=== PATIENT | female | born 1965 | race Caucasian/White ===

== ENCOUNTER 2017-06-17 17:16 | Inpatient (IN) ==
[2017-06-17] MEDS ORDERED: SODIUM CHLORIDE 0.9% 500 ML IV STA (18:14)
[2017-06-17] MEDS ORDERED: NALOXONE 0.4 MG/ML VIAL IV STA (18:14)
[2017-06-17] MEDS ORDERED: ONDANSETRON 4 MG/2 ML VIAL IV STA (18:14)
[2017-06-17 18:25] LABS: Basophils % 0.1 % (0.0-0.8); Eosinophils % 0.1 % (0.00-10.9); Hematocrit 36.9 VOL% (35.7-47.0); Hemoglobin 12.6 GM/DL (12.0-16.0); Immature Granulocytes % 0.6 %; Immature Granulocytes Absolute 0.05 #; Lymphocytes # 1.1 10*3/uL (1.4-4.0); Lymphocytes % 11.8 % (21.3-54.2); Mean Corpuscular HGB Conc 34.1 GM/DL (32-36); Mean Corpuscular Hemoglobin 32 PG (27-34); Mean Corpuscular Volume 94.6 FL (87-102); Mean Platelet Volume 9.8 FL (9.6-12.0); Monocytes % 11.6 % (1.7-12.7); NRBC # 0.02 10*3/uL; Neutrophils # 6.8 10*3/uL (1.4-7.4); Neutrophils % 75.8 % (38.7-73.9); Platelet Count 141 T/CUMM (130-400); Red Cell Distribution Width 15.4 % (9.3-17.3)
[2017-06-17] MEDS ORDERED: ONDANSETRON 4 MG/2 ML VIAL ONE (18:25)
[2017-06-17] MEDS ORDERED: NALOXONE 0.4 MG/ML VIAL ONE (18:25)
[2017-06-17 18:29] LABS: ABG Base Excess -1.8 MMOL/L (-2.5-2.5); ABG HCO3 22.8 MMOL/L (20-26); ABG Oxygen Saturation 91.4 % (95-100); ABG PCO2 48.6 MM HG (35-48); ABG PH 7.317 (7.35-7.45); ABG PO2 66.5 MM HG (80-95); ABG TCO2 22.2 MMOL/L (23-27)
[2017-06-17 18:43] LABS: INR 2.4
[2017-06-17 18:46] LABS: PT Patient Result 24.2 SECS
[2017-06-17 18:54] LABS: Troponin I Only 0.849 NG/ML (0.00-0.045)
[2017-06-17 19:04] LABS: Acetaminophen 29.4 UG/ML (10-30); Salicylate < 2.8 MG/DL (2.8-20)
[2017-06-17 19:25] LABS: Alanine Aminotransferase 41 U/L (13-56); Albumin 3.6 G/DL (3.4-5.0); Alkaline Phosphatase 73 U/L (45-117); Aspartate Amino Transferase 54 U/L (0-37); Blood Urea Nitrogen 27 MG/DL (7-18); Calcium 8.5 MG/DL (8.5-10.1); Glucose 256 MG/DL (74-106); Magnesium 1.9 MG/DL (1.8-2.4); Osmolality,Calculated 286.8 MOS/KG (273-304); Sodium 137 MMOL/L (136-145); Total Protein 6.6 G/DL (6.4-8.3)
[2017-06-17] MEDS ORDERED: PIPERACILLIN/TAZOBACTAM 3,375 MG VIAL IV ONE (19:41)
[2017-06-17] MEDS ORDERED: SODIUM CHLORIDE 0.9% 100 ML IV ONE (19:42)
[2017-06-17] MEDS ORDERED: ONDANSETRON 4 MG/2 ML VIAL IV PRN (20:27)
[2017-06-17] MEDS ORDERED: DEXTROSE 50% 25 GM/50 ML VIAL IV PRN (20:51)
[2017-06-17] MEDS ORDERED: GLUCAGON 1 MG VIAL IM PRN (20:51)
[2017-06-17] MEDS: PIPERACILLIN/TAZOBACTAM 3,375 MG in SODIUM CHLORIDE 0.9% 100 ML IV SCH (22:30)
[2017-06-17] MEDS: INSULIN LISPRO 100 UNIT/ML SUBCUT SCH (23:09)
[2017-06-17 23:20] LABS: Apearance,Urine CLEAR (Clear); Barbiturates Screen,Urine Negative (Negative); Benzodiazepines Screen,Urine Negative (Negative); Bilirubin,Urine Negative (Negative); Blood, Urine Negative (Negative); Cannabinoid Screen,Urine Negative (Negative); Glucose,Urine (UA) >=500 mg/dL (Negative); Granular Casts,Urine 2 /LPF (0-1); Hyaline Casts,Urine 14 /LPF (0-3); Ketones,Urine Negative (Negative); Mucus,Urine Occasional /LPF (Occasional); Nitrite,Urine Negative (Negative); Opiate Screen,Urine Positive (Negative); Phencyclidine Screen,Urine Negative (Negative); Protein,Urine Negative; Squamous Epithelial Cell,Urine Occasional /HPF (0-10); Urine Color Yellow (Yellow); Urine Urobilinogen < 2.0 EU/DL (0.2-1.0); WBC,Urine <1 /HPF (0-6)
[2017-06-17] MEDS: SODIUM CHLORIDE 0.9% 1,000 ML IV SCH (23:35)
[2017-06-18 05:12] LABS: Basophils % 0.2 % (0.0-0.8); Eosinophils # 0.1 10*3/uL (0.0-0.87); Eosinophils % 1.4 % (0.00-10.9); Hematocrit 32.9 VOL% (35.7-47.0); Hemoglobin 10.9 GM/DL (12.0-16.0); Immature Granulocytes % 0.3 %; Immature Granulocytes Absolute 0.02 #; Lymphocytes # 1.7 10*3/uL (1.4-4.0); Lymphocytes % 26.8 % (21.3-54.2); Mean Corpuscular HGB Conc 33.1 GM/DL (32-36); Mean Corpuscular Hemoglobin 32 PG (27-34); Mean Corpuscular Volume 95.4 FL (87-102); Mean Platelet Volume 10.1 FL (9.6-12.0); Monocytes # 0.8 10*3/uL (0.11-0.8); Monocytes % 11.9 % (1.7-12.7); NRBC # 0.02 10*3/uL; Neutrophils # 3.7 10*3/uL (1.4-7.4); Neutrophils % 59.4 % (38.7-73.9); Platelet Count 126 T/CUMM (130-400); Red Blood Count 3.45 MC/CUMM (3.8-5.5); Red Cell Distribution Width 15.4 % (9.3-17.3); White Blood Count 6.3 T/CUMM (4-12)
[2017-06-18 05:44] LABS: Albumin 3.1 G/DL (3.4-5.0); Calcium 8.1 MG/DL (8.5-10.1); Osmolality,Calculated 282.4 MOS/KG (273-304); Potassium 3.5 MMOL/L (3.5-5.1); Total Protein 5.6 G/DL (6.4-8.3)
[2017-06-18] MEDS: PIPERACILLIN/TAZOBACTAM 3,375 MG in SODIUM CHLORIDE 0.9% 100 ML IV SCH ×3 (06:03→21:59)
[2017-06-18] MEDS: SODIUM CHLORIDE 0.9% 1,000 ML IV SCH ×2 (06:03→14:59)
[2017-06-18] MEDS: INSULIN LISPRO 100 UNIT/ML SUBCUT SCH ×4 (08:20→20:35)
[2017-06-18] MEDS: ATORVASTATIN 40 MG TABLET PO SCH (08:53)
[2017-06-19] MEDS: SODIUM CHLORIDE 0.9% 1,000 ML IV SCH (02:56)
[2017-06-19] MEDS: PIPERACILLIN/TAZOBACTAM 3,375 MG in SODIUM CHLORIDE 0.9% 100 ML IV SCH ×2 (05:50→13:34)
[2017-06-19] MEDS: ATORVASTATIN 40 MG TABLET PO SCH (09:16)
[2017-06-19] MEDS: INSULIN LISPRO 100 UNIT/ML SUBCUT SCH ×4 (09:16→21:30)
[2017-06-20] MEDS: INSULIN LISPRO 100 UNIT/ML SUBCUT SCH ×4 (08:00→21:09)
[2017-06-20] MEDS: ATORVASTATIN 40 MG TABLET PO SCH (08:44)
[2017-06-20] MEDS ORDERED: ONDANSETRON 4 MG TABLET PO PRN (12:58)
[2017-06-20] MEDS: GABAPENTIN 400 MG CAPSULE PO SCH ×2 (16:55→21:13)
[2017-06-20] MEDS: CLOPIDOGREL 75 MG TABLET PO SCH (16:56)
[2017-06-20] MEDS: RIVAROXABAN 20 MG TABLET PO SCH (16:59)
[2017-06-20] MEDS ORDERED: OLAPARIB PO SCH (19:00)
[2017-06-20] MEDS ORDERED: VENLAFAXINE XR 75 MG CAPSULE PO SCH (19:00)
[2017-06-20] MEDS: METOPROLOL TARTRATE 25 MG TABLET PO SCH (21:12)
[2017-06-20] MEDS: INSULIN LISPRO PROTAMINE/LISPRO 75/25 100 UNIT/ML SUBCUT SCH (21:13)
[2017-06-21] MEDS: METOPROLOL TARTRATE 25 MG TABLET PO SCH (08:26)
[2017-06-21] MEDS: RIVAROXABAN 20 MG TABLET PO SCH (08:27)
[2017-06-21] MEDS: GABAPENTIN 400 MG CAPSULE PO SCH (08:27)
[2017-06-21] MEDS: ATORVASTATIN 40 MG TABLET PO SCH (08:27)
[2017-06-21] MEDS: INSULIN LISPRO 100 UNIT/ML SUBCUT SCH (08:27)
[2017-06-21] MEDS: INSULIN LISPRO PROTAMINE/LISPRO 75/25 100 UNIT/ML SUBCUT SCH (08:27)
[2017-06-21] MEDS: CLOPIDOGREL 75 MG TABLET PO SCH (08:27)
[2017-06-21] MEDS: OLAPARIB PO SCH ×2 (08:28→08:33)
[2017-06-21] MEDS ORDERED: VENLAFAXINE XR 75 MG CAPSULE PO SCH (09:00)
[2017-06-21 09:10] VITALS: BP 144/71
== END 2017-06-21 11:45 | disposition home or self-care (01) | DRG 812 ==
LOC: EDUNIT# → EDBD → N.EDINP 17:16 → N.ED 17:16 → N.ICU 22:00 → N.4E 06-18 12:46
PROVIDERS: ADMIT Internal Medicine; ATTEND Internal Medicine